=== PATIENT | female | born 1950 | race Caucasian/White ===

== ENCOUNTER → 2016-07-30 | Outpatient (CLI) | payer MEDICARE, OTHER ==
[~2016-07-30] MED LIST: ASPIRIN PO; FISH OIL 1,0001 CAP PO; NIACIN PO; ZESTORETIC 10/11 TAB PO; [UNRECOGNIZED DRUG - OTHER]
--- NOTE | ~2016-07-30 | CR7 ---
[facility] A Service of [facility] RADIOLOGY TEXT RESULTS PATIENT: KATH CAVANAUGH LOCATION: SGUS : 48 UNIT #: [id number] AGE: [address]: Sharan Schultz MD SEX: F ORDER DR: [id number] [place] [id number] MR#: [id number] Acc #: [id number] NAME: KATH CAVANAUGH. : 1950 SEX: F STUDY DATE/TIME: 07/30/2016 15:23 UNIT: SGUS ROOM: STUDY DESCRIPTION: CR Abdomen Single AP View Attending Physician: Sharan Schultz M.D. Referring Physician: Sharan Schultz M.D. Ordering Physician: Sharan Schultz M.D. Primary Care Physician: Yuriy Marc M.D. MEDICAL IMAGING REPORT This report is preliminary unless electronic signature is present. EXAM Abdomen, 1 view, 07/30/2016, 1523 hours. CLINICAL HISTORY 66-year-old with a history of urinary tract infection and stones. Symptoms began 3 years ago. Follow up stones, possible renal tumor. COMPARISON CT abdomen, 07/23/2015. FINDINGS Supine view of the abdomen and coned view of the pelvis were performed. There is a nonspecific bowel gas pattern with moderate stool throughout the colon and rectum. No definite stones are seen over the kidneys or ureters. Bilateral lower pelvic phleboliths are similar to prior CT. IMPRESSION 1. No definite renal or ureteral calculi. 2. Moderate stool throughout the colon and rectum. No small bowel distension. 3. There are bilateral lower pelvic phleboliths similar to prior CT scan. Dictated by... Ann-Marie Hunt M.D. THIS IS AN ELECTRONICALLY VERIFIED REPORT Ann-Marie Hunt M.D. at 07/31/2016 3:07 PM KATELYN/skylar TD: 07/31/2016 14:21 [facility] A Service of [facility] RADIOLOGY TEXT RESULTS PATIENT: KATH CAVANAUGH LOCATION: [facility] #: [id number] : [birth year] UNIT #: [id number] AGE: [address]: Sharan Schultz MD SEX: F ORDER DR: SASCHA #: [id number] MEDICAL IMAGING REPORT Page 1 of 1
--- NOTE | ~2016-07-30 | US77 ---
[facility] A Service of [facility] RADIOLOGY TEXT RESULTS PATIENT: KATH CAVANAUGH LOCATION: SGUS : 48 UNIT #: [id number] AGE: [address]: Sharan Schultz MD SEX: F ORDER DR: [id number] [place] [id number] O MR#: [id number] Acc #: [id number] NAME: KATH CAVANAUGH : 1950 SEX: F STUDY DATE/TIME: 07/30/2016 15:35 UNIT: SGUS ROOM: STUDY DESCRIPTION: US Kidney Bilateral Complete Attending Physician: Sharan Schultz M.D. Referring Physician: Sharan Schultz M.D. Ordering Physician: Sharan Schultz M.D. Primary Care Physician: Yuriy Marc M.D. MEDICAL IMAGING REPORT This report is preliminary unless electronic signature is present. EXAM Renal ultrasound 07/30/2016 HISTORY Frequent urinary tract infections for 3 years and history of renal stones. FINDINGS The right kidney measured 9.5 cm while the left kidney measured 12.6 cm in longitudinal dimensions. There is no evidence of hydronephrosis or nephrolithiasis. No cystic or solid mass lesions were seen on either kidney. There is normal renal cortical echogenicity. Images of the bladder are normal. IMPRESSION 1. Negative renal ultrasound. 2. Images of the bladder are normal. Dictated by... Kendrick Hernandez M.D. THIS IS AN ELECTRONICALLY VERIFIED REPORT Kendrick Hernandez M.D. at 07/31/2016 8:31 AM KRT/to TD: 07/30/2016 18:19 JOB #: [id number] MEDICAL IMAGING REPORT Page 1 of 1
== END | disposition home or self-care (01) ==
LOC: SGUS 15:18
DX: N20.0 Calculus of kidney (principal); D30.01 Benign neoplasm of right kidney; I87.8 Other specified disorders of veins
CPT/HCPCS: 74000; 76775